=== PATIENT | female | born 1985 | race Caucasian/White ===

== ENCOUNTER 2017-03-10 13:17 | Emergency (ER) | payer BC ==
[2017-03-10 13:52] VITALS: BP 129/71
[2017-03-10] MEDS ORDERED: Fluorescein Sodium TOPICAL* 1 MG TEST OPHTHALMIC ONE (13:54)
[2017-03-10] MEDS ORDERED: Fluorescein Sodium TOPICAL* 1 MG TEST ONE (13:58)
[2017-03-10] MEDS ORDERED: BSS OPTH.SOL* BTL ONE (13:58)
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
== END 2017-03-10 14:39 | disposition home or self-care (01) ==
LOC: UCEAST 13:17
DX: S05.02XA Injury of conjunctiva and corneal abrasion without foreign body, left eye, initial encounter (principal); W22.8XXA Striking against or struck by other objects, initial encounter; H53.8 Other visual disturbances; Z88.3 Allergy status to other anti-infective agents; F32.9 Major depressive disorder, single episode, unspecified; Z88.5 Allergy status to narcotic agent; Z88.0 Allergy status to penicillin
CPT/HCPCS: 99212; A9270-GY; G0463

== ENCOUNTER 2018-12-04 18:23 | Emergency (ER) | payer BC ==
[2018-12-04 18:31] VITALS: BP 141/85
[2018-12-04 19:01] LABS: Influenza A Molecular NEGATIVE (Negative); Influenza B Molecular NEGATIVE (Negative)
--- NOTE | 2018-12-04 19:16 | UC ---
FLU HPI - HPI Summary HPI Summary: 33 year old woman comes to clinic today with a chief complaint of influenza- like symptoms for 6 days. Patient started feeling ill and having neck pain 6 days ago. She is also having some myalgias. Denies any low back pain. Recently has developed a left sided headache and left ear pain. The left side of her neck is more painful and she feels that the pain is contiguous with her left ear pain. Today she reported that she felt confused. Here in clinic she does not feel confused. Been taking [id number] medications that have acetaminophen and them which has helped with the fevers. She did have diarrhea recently. No chest congestion. - History of Current Complaint Chief Complaint: UCRespiratory Stated Complaint: RESP COMPLAINTS Time Seen by Provider: 12/04/18 18:42 Hx Last Menstrual Period: <1 WEEK AGO Pain Intensity: 9 - Allergy/Home Medications Allergies/Adverse Reactions: Allergies Allergy/AdvReac Type Severity Reaction Status Date / Time codeine Allergy Rash Verified 12/04/18 18:31 dicloxacillin Allergy Difficulty Verified 12/04/18 18:31 Breathing morphine Allergy Rash Verified 12/04/18 18:31 Penicillins Allergy Airway Verified 12/04/18 18:31 Obstruction Home Medications: Home Medications guaiFENesin ER TAB [Mucinex*] 600 mg PO ONCE PRN 12/04/18 [History Confirmed ] PMH/Surg Hx/FS Hx/Imm Hx Previously Healthy: Yes - Surgical History Surgical History: Yes Surgery Procedure, Year, and Place: APPENDECTOMY, WISDOM TEETH - Family History Known Family History: Negative: Cardiac Disease, Hypertension - Social History Alcohol Use: Rare Substance Use Type: None Smoking Status (MU): Never Smoked Tobacco - Immunization History Most Recent Influenza Vaccination: denies Most Recent Tetanus Shot: 2011 Most Recent Pneumonia Vaccination: unknown Review of Systems All Other Systems Reviewed And Are Negative: Yes Constitutional: Positive: Fever Skin: Positive: Negative Eyes: Positive: Other - LIGH DOES MAKE HER HEADACHE WORSE ENT: Positive: Sore Throat, Ear Ache, Nasal Discharge, Sinus Congestion Respiratory: Positive: Negative Cardiovascular: Positive: Negative Gastrointestinal: Positive: Diarrhea. Negative: Abdominal Pain Genitourinary: Positive: Negative Motor: Positive: Negative Neurovascular: Positive: Negative Musculoskeletal: Positive: Myalgia Neurological: Positive: Other - SEE HPI Psychological: Positive: Negative Is Patient Immunocompromised?: No Physical Exam Triage Information Reviewed: Yes Appearance: No Pain Distress, Well-Nourished, Ill-Appearing - MILD Vital Signs: Initial Vital Signs Temp 97.8 F 12/04/18 18:27 Pulse 108 12/04/18 18:27 Resp 16 12/04/18 18:27 BP 141/85 12/04/18 18:27 Pulse Ox 100 12/04/18 18:27 Vital Signs Reviewed: Yes Eye Exam: Normal Eyes: Positive: Conjunctiva Clear ENT: Positive: Pharyngeal erythema, Nasal congestion, Nasal drainage, TM bulging - LEFT, TM red - LEFT TM RED WITH PUS IN LOWER ASPECT, Uvula midline. Negative: Tonsillar swelling, Tonsillar exudate, Muffled voice, Hoarse voice Neck: Positive: Supple - CAN FLEX AND EXTEND AND TURN SIDE TO SIDE. C/O PAIN WITH FULL EXTENSION. LEFT SIDE OF NECK IS TENDER TO PALPATION Respiratory: Positive: Lungs clear, Normal breath sounds, No respiratory distress Cardiovascular: Positive: Tachycardia Abdomen Description: Negative: CVA Tenderness (R), CVA Tenderness (L) Musculoskeletal Exam: Normal Musculoskeletal: Positive: Strength Intact, ROM Intact Neurological Exam: Normal Neurological: Positive: Alert, Muscle Tone Normal Psychological Exam: Normal Psychological: Positive: Age Appropriate Behavior Skin Exam: Normal Flu Course/Dx - Course Course Of Treatment: Both the flu test and strep tests were negative. I discussed this with the patient. At present she has pus behind the left TM and she has an otitis media. Her headache pain is on the left side and she also has pain in the left neck which is contiguous with the left ear. During our conversation she is not confused. She has good range of motion with her neck. The neck pain does not spread down into the thoracic or lumbar areas. We discussed the signs and symptoms of meningitis and encephalitis. Patient Adni know that her mother had encephalitis 2 years ago and so she is familiar with the symptoms. We discussed further evaluation in the emergency department. At this time clinically the patient does not have meningitis. She does have a left otitis media. With dicloxacillin patient has a rash and difficulty breathing. With penicillin she gets a rash. For trace of antibiotics with a penicillin allergy that significant would be a cephalosporin or doxycycline. Because of the difficulty breathing with dicloxacillin and the rash with penicillin we'll start doxycycline. We discussed going to the emergency department now for further evaluation and treatment versus treating with oral antibiotics and then if worsening going to the emergency department. Patient does not wish to the emergency department at this time. Overall the plan at this time is to continue to treat symptomatically treatment with doxycycline and if the patient gets worse she goes to the emergency department. - Differential Dx/Diagnosis Provider Diagnosis: Left otitis media Discharge - Sign-Out/Discharge Documenting (check all that apply): Patient Departure All imaging exams completed and their final reports reviewed: No Studies - Discharge Plan Condition: Stable Disposition: HOME Prescriptions: DOXYcycline CAP(*) [DOXYcycline 100MG CAP(*)] 100 mg PO BID #20 cap Patient Education Materials: Ear Infection (ED) Referrals: Charles Camilo MD [Primary Care Provider] - Additional Instructions: FOLLOW UP WITH YOUR DOCTOR IF NOT COMPLETELY IMPROVED. GO TO THE EMERGENCY DEPARTMENT ANY WORSENING OF YOUR CONDITION; HEADACHE, NECK AND/OR BACK STIFFNESS, CONFUSION OR QUESTIONS OR CONCERNS. - Billing Disposition and Condition Condition: STABLE Disposition: Home
== END 2018-12-04 19:25 | disposition home or self-care (01) ==
LOC: UCEAST 18:23
DX: H66.92 Otitis media, unspecified, left ear (principal); Z88.0 Allergy status to penicillin; Z88.5 Allergy status to narcotic agent
CPT/HCPCS: 87651; 99212; G0463

== ENCOUNTER 2019-10-19 10:52 | Emergency (ER) | payer BC ==
--- NOTE | 2019-10-19 11:17 | ED ---
- HPI Summary HPI Summary: Patient is a 34-year-old female who presents emergency department for vaginal spotting in early . Patient states she is roughly 12 weeks gestation. Patient states she has had 2 normal ultrasounds by OB. Patient states she had some dark red/brown discharge today and was seen by automotive paint technician at Dr. Carreon' s office. Patient states they were unable to see a heartbeat recommend she come to the ER for further evaluation. Patient notes minimal lower pelvic discomfort. Symptoms are moderate in severity. No current modifying factors. A0. - History of Current Complaint Chief Complaint: EDOBProblems Stated Complaint: BLEEDING/ 12WKS PER PT Time Seen by Provider: 10/19/19 11:04 Hx Obtained From: Patient Pain Intensity: 4 - Assessment Hx Now: No SAB: 0 IEA: 0 - Additional Pertinent History Maternal Blood Type and Rh: A Positive - Allergies/Home Medications Allergies/Adverse Reactions: Allergies Allergy/AdvReac Type Severity Reaction Status Date / Time codeine Allergy Rash Verified 10/19/19 11:02 dicloxacillin Allergy Difficulty Verified 10/19/19 11:02 Breathing morphine Allergy Rash Verified 10/19/19 11:02 Penicillins Allergy Airway Verified 10/19/19 11:02 Obstruction PMH/Surg Hx/FS Hx/Imm Hx Previously Healthy: Yes Endocrine/Hematology History: Denies: Hx Diabetes, Hx Thyroid Disease Cardiovascular History: Denies: Hx Hypertension - HYPOTENSION, Hx Pacemaker/ICD Respiratory History: Denies: Hx Asthma, Hx Chronic Obstructive Pulmonary Disease (COPD) GI History: Denies: Hx Ulcer History: Denies: Hx Renal Disease Sensory History: Denies: Hx Hearing Aid Psychiatric History: Reports: Hx Depression Denies: Hx Panic Disorder - Surgical History Surgery Procedure, Year, and Place: APPENDECTOMY, WISDOM TEETH Infectious Disease History: No Infectious Disease History: Denies: Hx Clostridium Difficile, Hx Hepatitis, Hx Human Immunodeficiency Virus (HIV), Hx of Known/Suspected MRSA, Hx Shingles, Hx Tuberculosis, Hx Known/ Suspected VRE, Hx Known/Suspected VRSA, History Other Infectious Disease, Traveled Outside the [place] in Last 30 Days - Family History Known Family History: Positive: Non-Contributory Negative: Cardiac Disease, Hypertension - Social History Occupation: Employed Full-time Lives: With Family Alcohol Use: Rare Substance Use Type: Reports: None Smoking Status (MU): Never Smoked Tobacco Review of Systems Constitutional: Negative Cardiovascular: Negative Respiratory: Negative Positive: Abdominal Pain Positive: other - vaginal spotting Neurological: Negative All Other Systems Reviewed And Are Negative: Yes Physical Exam - Physical Exam Triage Information Reviewed: Yes Vital Signs Reviewed: Yes Appearance: Positive: Well-Appearing - Pt. sitting up in bed in NAD. Tearful. Skin: Positive: Warm, Dry Head/Face: Positive: Normal Head/Face Inspection Eyes: Positive: Normal, EOMI, SHERYL Neck: Positive: Supple Respiratory/Lung Sounds: Positive: Clear to Auscultation, Breath Sounds Present Cardiovascular: Positive: Normal, RRR Abdomen Description: Positive: Nontender, Soft Neurological: Positive: Normal, CN Intact II-III Psychiatric: Positive: Affect/Mood Appropriate Procedures - Sedation Patient Received Moderate/Deep Sedation with Procedure: No Diagnostics - Vital Signs Vital Signs Temp Pulse Resp BP Pulse Ox 10/19/19 10:59 97.0 F 81 18 142/89 100 - Laboratory Result Diagrams: 10/19/19 12:15 10/19/19 11:30 Lab Statement: Any lab studies that have been ordered have been reviewed, and results considered in the medical decision making process. Course/Dx - Course Course Of Treatment: Patient presenting with vaginal spotting in early . Blood type today is a positive. Beta hCG 14k. U/S per radiology: IMPRESSION: EARLY INTRAUTERINE WITH AN ESTIMATED GESTATIONAL AGE OF 10 WEEKS 4. DAYS. NO HEARTBEAT IS DETECTED MOST CONSISTENT WITH DEMISE. Case discussed with pt. Pt. states OB wanted to see her back into the office after test to discuss options. Pt. will return to er if sxs change or worsen. - Differential Diagnosis/HQI/PQRI: Spontaneous , Intrauterine , First Trimester Bleeding, Early - Diagnoses Provider Diagnoses: demise Discharge ED - Sign-Out/Discharge Documenting (check all that apply): Patient Departure - Discharge Plan Condition: Good Disposition: HOME Patient Education Materials: Miscarriage (ED) Referrals: Charles Camilo MD [Primary Care Provider] - Bboo Carreon MD [Medical Doctor] - Additional Instructions: Schedule a close follow up appointment with Dr. Carreon Increase fluids and rest Can take tylenol for discomfort as directed Return to ER if symptoms change or worsen - Billing Disposition and Condition Condition: GOOD Disposition: Home
[2019-10-19 12:08] LABS: BUN/Creatinine Ratio 11.8 (8-20); Calcium 9.3 mg/dL (8.6-10.3); EGFR African American 105.4 (>60); EGFR Non-African American 87.1 (>60); Potassium 3.2 mmol/L (3.5-5.0)
[2019-10-19 12:52] LABS: ABS Basophils 0.1 10^3/ul (0-0.2); ABS Lymphocytes 1.2 10^3/ul (1.0-4.8); ABS Monocytes 0.4 10^3/ul (0-0.8); ABS Neutrophils 7.1 10^3/ul (1.5-7.7); Eosinophil % 0.1 %; Hematocrit 42 % (35-47); Lymphocyte % 13.5 %; Mean Corpuscular HGB Conc 34 g/dL (31-36); Mean Corpuscular Hemoglobin 27 pg (27-31); Mean Corpuscular Volume 81 fL (80-97); Mean Platelet Volume 9.2 fL (7.4-10.4); Nucleated Red Blood Cells % 0.2; Platelet Count 256 10^3/uL (150-450); Red Blood Count 5.15 10^6 /uL (3.70-4.87); Red Cell Distribution Width 13 % (10-15); White Blood Count 8.8 10^3/uL (3.5-10.8)
[2019-10-19 13:14] VITALS: BP 142/76
== END 2019-10-19 13:10 | disposition home or self-care (01) ==
LOC: ED 10:52
DX: O03.9 Complete or unspecified spontaneous abortion without complication (principal); Z88.5 Allergy status to narcotic agent; Z88.0 Allergy status to penicillin
CPT/HCPCS: 36415; 76801; 80048; 84702; 85025; 86900; 86901; 99283